=== PATIENT | female | born 1945 | race Caucasian/White ===

== ENCOUNTER → 2017-03-04 | Outpatient (CLI) | payer MEDICARE, BC | END | disposition home or self-care (01) | LOC: PTH.S 15:25 → RAD.S 16:00 | DX: M54.40 Lumbago with sciatica, unspecified side (principal); R15.9 Full incontinence of feces; M47.816 Spondylosis without myelopathy or radiculopathy, lumbar region; M48.06 Spinal stenosis, lumbar region ==